=== PATIENT | female | born 1960 | race Caucasian/White ===

== ENCOUNTER 2016-03-01 05:40 | Inpatient (IN) | payer BC, MEDICAID, OTHER ==
[~2016-03-01] VITALS: Ht 160 cm; Wt 77.2 kg
[~2016-03-01 05:40] MED LIST: BACL10TA PO; DULO60CA PO; FENO5TAB PO; GABA300C PO; GLIP-116 PO; HYDR1LIQ PO; METF-316 PO; METH-171 PO; PANT1INJ3 PO; POTA12PO2 PO; PREG300C12 PO; SIMV5TAB38 PO; SITA100T7 PO; VALS40TA2 PO; WARF1TAB PO; ZOFR4T PO; [UNRECOGNIZED DRUG - CODE] PO
[2016-03-01 06:37] LABS: Basophils # (auto) 0 uL; Basophils % (auto) 0.1 % (0.0-2.0); Eosinophils # (auto) 0.1 uL; Eosinophils % (auto) 0.6 % (0.0-7.0); Hematocrit 45.3 % (36.0-46.0); Hemoglobin 15.1 g/dL (12.2-16.2); Lymphocytes # (auto) 1.1 uL; Lymphocytes % (auto) 10.1 % (10.0-50.0); Mean Corpuscular Hemoglobin 29.4 pg (28.0-32.0); Mean Corpuscular Hgb Conc. 33.4 g/dL (32.0-36.0); Mean Corpuscular Volume 87.9 fL (80.0-100.0); Mean Platelet Volume 8.3 fL (7.4-10.4); Monocytes # (auto) 0.3 uL; Neutrophils # (auto) 9.7 uL; Neutrophils % (auto) 86.2 % (37.0-80.0); Platelet Count (auto) 247 10^3/uL (140-450); Red Cell Distribution Width 15.2 % (11.6-16.0); White Blood Cell 11.3 10^3/uL (4.4-10.8)
[2016-03-01 07:28] LABS: Albumin 3.7 g/dL (3.4-5.0); BUN/Creatinine Ratio 24.7; Bilirubin, Total 0.6 mg/dL (0.2-1.0); Magnesium 1.9 mg/dL (1.6-2.6); Potassium 4.3 mmol/L (3.5-5.1)
[2016-03-01] MEDS ORDERED: HYDROmorphone HCL 2 MG/ML VL IV ONE ×2 (07:30→10:30)
[2016-03-01] MEDS ORDERED: PROMETHAZINE HCL 25 MG/ML 1ML IV ONE (07:30)
[2016-03-01] MEDS ORDERED: IOHEXOL 350 MG/ML 100ML IJ ONE (07:33)
[2016-03-01 07:47] LABS: Urine Bilirubin Negative (Negative); Urine Blood Negative /uL (Negative); Urine Color Yellow (Yellow); Urine Glucose Normal (Normal); Urine Ketone Negative (Negative); Urine Mucus FEW (None Seen); Urine Nitrite Negative (Negative); Urine RBC 1 /hpf (0 - 4); Urine Squamous Epithelial Cell MOD /hpf (<5); Urine Urobilinogen Normal (Negative); Urine pH 5.5 (5.0-8.0)
[2016-03-01] MEDS ORDERED: ONDANSETRON HCL 4 MG/2 ML VIAL IV ONE (10:30)
[2016-03-01] MEDS ORDERED: SODIUM CHLORIDE 0.9% 1,000 ML IV ONE (14:00)
[2016-03-01] MEDS ORDERED: cefTRIAXone 1GM/50ML D5W 50 ML IV ONE (14:00)
[2016-03-01] MEDS ORDERED: MORPHINE SULF INJ 2 MG/ML SYRINGE 1ML IV PRN (14:15)
[2016-03-01] MEDS ORDERED: ONDANSETRON HCL 4 MG/2 ML VIAL IV PRN (14:15)
[2016-03-01] MEDS ORDERED: METHOCARBAMOL 500 MG TAB PO PRN (14:15)
[2016-03-01] MEDS ORDERED: DEXTROSE (50%) 50ML SYRG IV PRN (14:15)
[2016-03-01] MEDS ORDERED: SODIUM CHLORIDE 0.9% 1,000 ML IV SCH (14:15)
[2016-03-01] MEDS ORDERED: LEVOFLOXACIN 500MG 100 ML IV SCH (14:23)
[2016-03-01] MEDS ORDERED: metroNIDAZOLE 500MG/100ML 100 ML IV ONE (14:30)
[2016-03-01] MEDS ORDERED: PREGABALIN CAPSULE 75 MG CAP PO ONE (14:30)
[2016-03-01] MEDS ORDERED: PANTOPRAZOLE SODIUM 40 MG/10 ML VIAL IV ONE (14:30)
[2016-03-01 17:08] VITALS: BP 138/57
[2016-03-01] MEDS ORDERED: SOD CHL 0.45% WITH 20MEQ KCL 1,000 ML IV ONE (17:30)
[2016-03-01] MEDS: InsuLIN REG 1unit/0.01ml Soln (100units/ml) SC SCH (18:00)
[2016-03-01] MEDS: HYDROcodone-ACET 5/325MG TAB PO PRN (18:02)
[2016-03-01] MEDS: ACCU-CHEK COMFORT CURVE STRIP VI SCH (18:04)
[2016-03-01 20:00] LABS: INR 1.14 (0.9-1.15); Partial Thromboplastin Time 28.2 sec (22.64-33.71); Prothrombin Time 11.7 sec (9.37-12.3)
[2016-03-01] MEDS: metroNIDAZOLE 500MG/100ML 100 ML IV SCH (21:48)
[2016-03-01 22:00] VITALS: BP 134/61
[2016-03-01] MEDS ORDERED: PREGABALIN CAPSULE 75 MG CAP PO SCH (22:00)
[2016-03-02] MEDS: ACCU-CHEK COMFORT CURVE STRIP VI SCH ×2 (00:04→05:31)
[2016-03-02] MEDS ORDERED: METHOCARBAMOL 500 MG TAB PO PRN (00:30)
[2016-03-02] MEDS: HYDROcodone-ACET 5/325MG TAB PO PRN (05:13)
[2016-03-02] MEDS: metroNIDAZOLE 500MG/100ML 100 ML IV SCH (05:30)
[2016-03-02 05:31] LABS: INR 1.11 (0.9-1.15); Partial Thromboplastin Time 24.3 sec (22.64-33.71); Prothrombin Time 11.4 sec (9.37-12.3)
[2016-03-02] MEDS: InsuLIN REG 1unit/0.01ml Soln (100units/ml) SC SCH ×2 (05:31)
[2016-03-02 05:37] VITALS: BP 140/51
[2016-03-02 05:38] LABS: BUN/Creatinine Ratio 23.2; Calcium 7.8 mg/dL (8.5-10.1); Potassium 4.9 mmol/L (3.5-5.1)
[2016-03-02 05:40] LABS: Bilirubin, Total 0.9 mg/dL (0.2-1.0); Total Protein 6.9 g/dL (6.4-8.2)
[2016-03-02] MEDS ORDERED: PANTOPRAZOLE SODIUM 40 MG/10 ML VIAL IV SCH (10:00)
== END 2016-03-02 08:10 | disposition left against medical advice (07) ==
LOC: ER 05:45 → TELE 05:46 → TELE-E-ADS 16:07 → CENTRAL 16:59
PROVIDERS: ADMIT Internal Medicine; ATTEND Internal Medicine
DX: K81.0 Acute cholecystitis (principal); E11.65 Type 2 diabetes mellitus with hyperglycemia; M41.9 Scoliosis, unspecified; G89.4 Chronic pain syndrome; K42.9 Umbilical hernia without obstruction or gangrene; M79.7 Fibromyalgia; Z96.641 Presence of right artificial hip joint; M54.9 Dorsalgia, unspecified; G56.03 Carpal tunnel syndrome, bilateral upper limbs; Z98.1 Arthrodesis status; Z87.11 Personal history of peptic ulcer disease; Z88.4 Allergy status to anesthetic agent; Z88.0 Allergy status to penicillin; Z90.89 Acquired absence of other organs; Z98.890 Other specified postprocedural states
CPT/HCPCS: 36415; 71010; 74177; 76705; 78226; 80053; 81001; 82150; 82962; 83036; 83690; 83735; 84484; 85025; 85049; 85610; 85730; 86850; 86900; 86901; 93005; C9113; J0696; J1956; J2405; J3490

== ENCOUNTER 2018-01-11 05:19 | Emergency (ER) | payer MEDICAID ==
[~2018-01-11] VITALS: Ht 160 cm; Wt 81.6 kg
[~2018-01-11 05:19] MED LIST changes: -METF-316 PO; +METF-372 PO; -METH-171 PO; +METH-532 PO
[2018-01-11 08:47] LABS: Basophils # (auto) 0 uL; Hemoglobin 11.2 g/dL (12.2-16.2); Lymphocytes # (auto) 1.4 uL; Mean Corpuscular Hemoglobin 25.7 pg (28.0-32.0); Neutrophils # (auto) 6.7 uL
[2018-01-11 08:48] LABS: Basophils % (auto) 0.3 % (0.0-2.0); Eosinophils # (auto) 0.1 uL; Eosinophils % (auto) 0.7 % (0.0-7.0); Lymphocytes % (auto) 15.7 % (10.0-50.0); Mean Corpuscular Hgb Conc. 32.1 g/dL (32.0-36.0); Mean Corpuscular Volume 80.2 fL (80.0-100.0); Monocytes # (auto) 0.5 uL; Monocytes % (auto) 5.7 % (0.0-12.0); Neutrophils % (auto) 77.6 % (37.0-80.0); Platelet Count (auto) 347 10^3/uL (140-450); Red Blood Cells 4.36 10^6/uL (4.0-5.20); Red Cell Distribution Width 16.5 % (11.8-14.3); White Blood Cell 8.7 10^3/uL (4.4-10.8)
[2018-01-11 08:59] LABS: Albumin 3.5 g/dL (3.4-5.0); Potassium 3.9 mmol/L (3.5-5.1)
[2018-01-11 09:02] LABS: Bilirubin, Total 0.5 mg/dL (0.2-1.0); Total Protein 7.5 g/dL (6.4-8.2)
[2018-01-11] MEDS ORDERED: IBUPROFEN 800 MG TAB PO ONE (10:00)
[2018-01-11 10:37] VITALS: BP 146/69
[2018-01-11 11:20] LABS: Urine Bacteria FEW /hpf (None Seen); Urine Blood Negative /uL (Negative); Urine Mucus FEW (None Seen); Urine Specific Gravity 1.021 (1.001-1.035); Urine WBC 17 /hpf (0 - 5)
== END 2018-01-11 11:37 | disposition home or self-care (01) ==
LOC: ER 05:26
DX: N39.0 Urinary tract infection, site not specified (principal); R11.2 Nausea with vomiting, unspecified; R19.7 Diarrhea, unspecified; E11.9 Type 2 diabetes mellitus without complications; Z88.0 Allergy status to penicillin; Z88.8 Allergy status to other drugs, medicaments and biological substances; Z79.01 Long term (current) use of anticoagulants; Z79.84 Long term (current) use of oral hypoglycemic drugs; Z79.899 Other long term (current) drug therapy; Z90.49 Acquired absence of other specified parts of digestive tract
CPT/HCPCS: 36415; 74176; 80053; 81001; 85025